=== PATIENT | male | born 1990 | race African-American/Black ===

== ENCOUNTER 2022-06-20 17:39 | Emergency (ER) | payer OTHER ==
[~2022-06-20] VITALS: Ht 185.4 cm; Wt 123.0 kg
[2022-06-20 18:25] VITALS: BP 123/74
[2022-06-20] MEDS ORDERED: CEPH500 PO (19:40)
[2022-06-20] MEDS ORDERED: PALI6TA PO (19:40)
== END 2022-06-20 20:05 | disposition home or self-care (01) ==
LOC: ER 17:39
DX: L73.9 Follicular disorder, unspecified (principal); L03.116 Cellulitis of left lower limb; Z76.0 Encounter for issue of repeat prescription; F17.200 Nicotine dependence, unspecified, uncomplicated
CPT/HCPCS: 99283